=== PATIENT | female | born 2000 | race Caucasian/White ===

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

== ENCOUNTER 2019-04-06 07:53 | Emergency (ER) | payer MEDICAID ==
[~2019-04-06] VITALS: Ht 165.1 cm; Wt 104.3 kg
--- NOTE | 2019-04-06 08:01 | NUR ---
18 Y/O F WITH C/C LEFT SIDED SWOLLEN FACE, REDNESS X1 DAY. PT NEURO WDL. NO OTHER COMPLAINTS PER PT. NO PAIN. PT NKA. NO MEDICAL HX. NO RX. DENIES N/V/D. SIDE RAIL X1.
[2019-04-06 08:05] VITALS: BP 121/84
--- NOTE | 2019-04-06 08:26 | NUR ---
MD GLASS AT BEDSIDE
[2019-04-06 08:41] VITALS: BP 121/84
== END 2019-04-06 08:41 | disposition home or self-care (01) ==
LOC: MED 07:53
DX: L02.01 Cutaneous abscess of face (principal)
CPT/HCPCS: 99283